=== PATIENT | female | born 1950 | race Caucasian/White ===

== ENCOUNTER 2017-03-08 13:39 | Emergency (ER) | payer MEDICARE, BC ==
[~2017-03-08] VITALS: Ht 170.2 cm; Wt 93.0 kg
[~2017-03-08 13:39] MED LIST: AZIT250T3 PO; ERGO1CAP30 PO; FERR325T PO; GLIP5TAB8 PO; HYDR5SYP10 PO; LEVO112T2 PO; LOMO2.5T PO; LOSA25TA PO; METF1000 PO; PARO40TA2 PO; SIMV40TA PO; TRAZ50TA12 PO; VERA1TAB9 PO
[2017-03-08 13:42] VITALS: BP 135/65; PULSE 78; RESP 16; TEMP 98.2; O2SAT 96
[2017-03-08] MEDS ORDERED: ONDANSETRON ODT 4 MG TAB PO ONE (14:15)
--- NOTE | 2017-03-08 14:31 | PD ---
HPI Chief Complaint: Injury Time Seen by Provider: 14:05 Travel History International Travel<30 days: No Contact w/Intl Traveler<30days: No Traveled to known affect area: No History of Present Illness HPI 66-year-old female presents to the emergency room for multiple complaints. First complaint is right ankle pain and swelling for the past 4 days. Patient ran into a step with her right chavez and sustained a small contusion with moderate pain. She applied ice after it initially happened. States a few days later she noticed right ankle swelling and bruising but denies any pain or trauma to that area. She denies any paresthesias. Second complaint is left upper abdominal pain for the past 2 days. Patient has been coughing for 12 days and believes the abdominal pain is related to the coughing. She went to her primary care physician for the cough and was prescribed azithromycin and cough medicine with codeine. These medications don' t seem to be improving her symptoms. She has severe left upper abdominal pain with any amount of coughing and has to apply pressure to her abdomen to prevent pain from worsening. Pain is improved slightly with pressure. She also has pain with movement. Patient has not been taking anything for pain. Patient has associated nausea without vomiting that started today. She has had diarrhea for several months but no changes or worsening in symptoms since abdominal pain started. PFSH Past Medical History Depression: Yes High Cholesterol: Yes Diabetes: Yes Patient Takes Glucophage: Yes Hypertension: Yes Thyroid Disease: Yes Past Surgical History Abdominal Surgery: Yes (GASTRIC BYPASS) Section: Yes Hysterectomy: Yes Other Surgery: Yes (HEMORRHOIDS) Social History Alcohol Use: Yes (SOC) Tobacco Use: No (quit 1987) Substance Use: No Allergies-Medications (Allergen,Severity, Reaction): Coded Allergies: Darvocet-N 100 (Verified Allergy, Unknown, 03/08/17) Halcion (Verified Allergy, Unknown, 03/08/17) Penicillin (Verified Allergy, Unknown, 03/08/17) Reported Meds & Prescriptions Reported Meds & Active Scripts Active Ventolin Hfa 18 GM Inh (Albuterol Sulfate) 90 Mcg/Act Aer 2 Puff INH Q4-6H PRN Tylenol (Acetaminophen) 325 Mg Tab 650 Mg PO Q8HR PRN Glipizide 5 Mg Tab 5 Mg PO BIDAC Take 30 minutes before a meal Metformin (Metformin HCl) 1,000 Mg Tab 1,000 Mg PO BIDPC With meals Verapamil ER (Verapamil HCl) 120 Mg Tab 120 Mg PO DAILY Paroxetine (Paroxetine HCl) 40 Mg Tab 40 Mg PO DAILY Simvastatin 40 Mg Tab 40 Mg PO HS Levothyroxine (Levothyroxine Sodium) 112 Mcg Tab 112 Mcg PO DAILY Review of Systems Except as stated in HPI: all other systems reviewed are Neg Physical Exam Narrative GENERAL: Well-developed, well-nourished female in no acute distress. Afebrile. Ambulatory SKIN: Focused skin assessment warm/dry. HEAD: Atraumatic. Normocephalic. EYES: Pupils equal and round. No scleral icterus. No injection or drainage. ENT: No nasal bleeding or discharge. Mucous membranes pink and moist. NECK: Trachea midline. No JVD. CARDIOVASCULAR: Regular rate and rhythm. No murmur appreciated. RESPIRATORY: No accessory muscle use. Breath sounds equal bilaterally. Left lower lung wheezes. GASTROINTESTINAL: Abdomen soft, non-tender, nondistended. Hepatic and splenic margins not palpable. EXTREMITY: Mild tenderness to palpation of the right lower chavez. There is a small hematoma and surrounding erythema. 2+ dorsalis pedis pulse. Full range of motion of all joints. Mild to moderate edema of the right ankle. Data Data Last Documented VS Vital Signs Date Time Temp Pulse Resp B/P Pulse Ox O2 Delivery O2 Flow Rate FiO2 03/08/17 13:42 98.2 78 16 135/65 96 Orders Ondansetron Odt (Zofran Odt) (03/08/17 14:15) Complete Blood Count With Diff (03/08/17 14:40) Comprehensive Metabolic Panel (03/08/17 14:40) Lipase (03/08/17 14:40) Prothrombin Time / Inr (Pt) (03/08/17 14:40) Act Partial Throm Time (Ptt) (03/08/17 14:40) Ct Abd/Pel W Iv Contrast(Rout) (03/08/17 14:40) Iv Access Insert/Monitor (03/08/17 14:40) Sodium Chloride 0.9% Flush (Ns Flush) (03/08/17 14:45) Iohexol 350 Inj (Omnipaque 350 Inj) (03/08/17 15:36) Baclofen (Lioresal) (03/08/17 16:15) Labs Laboratory Tests Test 03/08/17 14:54 White Blood Count 4.4 TH/MM3 Red Blood Count 4.20 MIL/MM3 Hemoglobin 11.0 GM/DL Hematocrit 33.4 % Mean Corpuscular Volume 79.6 FL Mean Corpuscular Hemoglobin 26.1 PG Mean Corpuscular Hemoglobin 32.8 % Concent Red Cell Distribution Width 19.7 % Platelet Count 155 TH/MM3 Mean Platelet Volume 7.7 FL Neutrophils (%) (Auto) 47.4 % Lymphocytes (%) (Auto) 37.8 % Monocytes (%) (Auto) 9.2 % Eosinophils (%) (Auto) 4.9 % Basophils (%) (Auto) 0.7 % Neutrophils # (Auto) 2.1 TH/MM3 Lymphocytes # (Auto) 1.6 TH/MM3 Monocytes # (Auto) 0.4 TH/MM3 Eosinophils # (Auto) 0.2 TH/MM3 Basophils # (Auto) 0.0 TH/MM3 CBC Comment DIFF FINAL Differential Comment Prothrombin Time 11.4 SEC Prothromb Time International 1.0 RATIO Ratio Activated Partial 26.7 SEC Thromboplast Time Sodium Level 142 MEQ/L Potassium Level 4.2 MEQ/L Chloride Level 105 MEQ/L Carbon Dioxide Level 30.5 MEQ/L Anion Gap 7 MEQ/L Blood Urea Nitrogen 13 MG/DL Creatinine 0.78 MG/DL Estimat Glomerular Filtration 74 ML/MIN Rate Random Glucose 174 MG/DL Calcium Level 8.5 MG/DL Total Bilirubin 0.3 MG/DL Aspartate Amino Transf 24 U/L (AST/SGOT) Alanine Aminotransferase 33 U/L (ALT/SGPT) Alkaline Phosphatase 96 U/L Total Protein 6.9 GM/DL Albumin 3.4 GM/DL Lipase 120 U/L [facility] Medical Decision Making Medical Screen Exam Complete: Yes Emergency Medical Condition: Yes Medical Record Reviewed: Yes Differential Diagnosis Muscle strain versus spasm versus contusion versus edema Narrative Course 66-year-old female with history of gastric bypass presents to the emergency room for evaluation of multiple complaints. Patient has had a cough for the past 12 days and developed abdominal pain 2 days ago. Pain is severe with coughing. She has associated nausea today. No unusual diarrhea. Pain is worsened with palpation. Abdomen is soft, benign. CBC, CMP, and lipase are negative. CT of the abdomen is negative. This is likely muscle strain from coughing so much. Patient was given baclofen in the emergency room. She is discharged with prescription for Tylenol. Patient also complains of right ankle pain, bruising, and swelling after injuring 4 days ago. She ran into a step and developed worsening swelling and bruising in her foot today. She denies any trauma or injury to the foot. Full exam reveals a small area of ecchymosis on the lower chavez with ecchymosis of the medial foot. There is only tenderness to palpation of the chavez contusion. No bony tenderness. Patient likely has ankle ecchymosis secondary to gravity. She was reassured and told to wrap/elevate leg. Patient was told to follow-up with a primary care physician or return for worsening symptoms. She understands and agrees to plan. Diagnosis Primary Impression: Contusion of right ankle, initial encounter Additional Impression: Abdominal muscle strain Qualified Code: S39.011A - Abdominal muscle strain, initial encounter Referrals: Primary Care Physician Patient Instructions: Contusion in Adults (ED), General Instructions, Muscle Strain (ED) Additional Instructions: Rest and drink plenty of fluids. Take Tylenol as directed, as needed for pain. Use inhaler as directed, as needed for cough and shortness of breath. Follow-up with a primary care physician. Return to the emergency room for worsening symptoms. Med/Other Pt SpecificInfo: Prescription(s) given Scripts Albuterol 18 GM Inh (Ventolin Hfa 18 GM Inh)90 Mcg/Act Aer2 Puff INH Q4-6H PRN ( SHORTNESS OF BREATH) #1 INHALER Ref 0 Prov:Rico Emery MD 03/08/17 Acetaminophen (Tylenol)325 Mg [id number] Mg PO Q8HR PRN (PAIN SCALE 1 TO 10) #21 TAB Ref 0 Prov:Rico Emery MD 03/08/17 Disposition: 01 DISCHARGE HOME Condition: Stable Kina Martinez Mar 08, 2017 14:31
[2017-03-08] MEDS ORDERED: SODIUM CHLORIDE 0.9% FLUSH 10 ML FLUSH IV FLUSH PRN (14:45)
[2017-03-08 15:01] LABS: AUTOMATED NEUTROPHIL # 2.1 TH/MM3 (1.8-7.7); BASOPHIL % 0.7 % (0.0-2.0); EOSINOPHIL # 0.2 TH/MM3 (0-0.4); EOSINOPHIL % 4.9 % (0.0-4.0); HEMATOCRIT 33.4 % (35.0-46.0); HEMO FLAGS DIFF FINAL; LYMPH % 37.8 % (9.0-44.0); LYMPHOCYTE # 1.6 TH/MM3 (1.0-4.8); MEAN CELL VOLUME 79.6 FL (80.0-100.0); MEAN CORPUSCULAR HEMOGLOBIN 26.1 PG (27.0-34.0); MEAN CORPUSCULAR HGB CONC 32.8 % (32.0-36.0); MONO % 9.2 % (0.0-8.0); NEUT % 47.4 % (16.0-70.0); PLATELET COUNT 155 TH/MM3 (150-450); RED CELL DISTRIBUTION WIDTH 19.7 % (11.6-17.2); WHITE BLOOD COUNT 4.4 TH/MM3 (4.0-11.0)
[2017-03-08 15:09] LABS: CHLORIDE 105 MEQ/L (98-107); POTASSIUM 4.2 MEQ/L (3.5-5.1); SODIUM (NA) 142 MEQ/L (136-145)
[2017-03-08 15:12] LABS: ANION GAP 7 MEQ/L (5-15); BICARBONATE 30.5 MEQ/L (21.0-32.0)
[2017-03-08 15:13] LABS: BLOOD UREA NITROGEN 13 MG/DL (7-18)
[2017-03-08 15:14] LABS: APTT (PATIENT) 26.7 SEC (24.3-30.1); PROTHROMBIN TIME - PATIENT 11.4 SEC (9.8-11.6)
[2017-03-08 15:15] LABS: ALT (GPT) 33 U/L (10-53); AST (GOT) 24 U/L (15-37); GLOMERULAR FILTRATION RATE 74 ML/MIN (>89)
[2017-03-08 15:17] LABS: TOTAL BILIRUBIN ADULT 0.3 MG/DL (0.2-1.0)
[2017-03-08 15:18] LABS: ALKALINE PHOSPHATASE 96 U/L (45-117)
[2017-03-08] MEDS ORDERED: IOHEXOL 350 MG/ML 10 ML VIAL (for RAD DIAG) IV ONE (15:36)
--- NOTE | 2017-03-08 16:08 | RADHPO ---
EXAM DATE/TIME: 03/08/2017 15:25 [facility] COMPARISON: No previous studies available for comparison. INDICATIONS : Left upper quadrant pain for two days. IV CONTRAST: 75 cc Omnipaque 350 (iohexol) IV ORAL CONTRAST: No oral contrast ingested. RADIATION DOSE: 20.21 CTDIvol (mGy) MEDICAL HISTORY : Hypertension. Diabetes. SURGICAL HISTORY : Gastric bypass. section.Hysterectomy. ENCOUNTER: Initial ACUITY: 2 days PAIN SCALE: 4/10 LOCATION: Left upper quadrant TECHNIQUE: Volumetric scanning of the abdomen and pelvis was performed. Using automated exposure control and ad justment of the mA and/or kV according to patient size, radiation dose was kept as low as reasonably achievable to obtain optimal diagnostic quality images. FINDINGS: Liver, spleen, pancreas, adrenal glands and kidneys are of normal. No obstruction or acute inflammatory changes seen in the gastrointestinal tract. CT appearance of the gallbladder within normal limits. There is atherosclerosis of the abdominal aorta. No aneurysm. Surgical changes of ventral hernia repair and gastric bypass noted. Elongated fluid collection seen in the right iliopsoas bursa. Minimal degenerative changes are seen o f both hips. Trace atelectasis seen in both lung bases. CONCLUSION: 1. No acute abnormality seen within the abdomen or pelvis. 2. Previous gastric bypass without evidence of an acute complication. 3. Previous ventral hernia repair without recurrent defect. 4. Incidentally seen right iliopsoas bursitis. 5. Atherosclerosis of the abdominal aorta. No aneurysm. 6. Trace bibasilar atelectasis. Clyde Rodriguez MD on March 08, 2017 at 16:04 Board Certified Radiologist. This report was verified electronically.
[2017-03-08] MEDS ORDERED: TYLE325T PO (16:12)
[2017-03-08] MEDS ORDERED: BACLOFEN 10 MG TAB PO ONE (16:15)
[2017-03-08] MEDS ORDERED: VENTAER INH (16:16)
[2017-03-08 16:39] VITALS: BP 141/63; PULSE 66; RESP 18; O2SAT 95
[2017-04-02] MEDS ORDERED: VERA1TAB9 PO (12:41)
== END 2017-03-08 16:40 | disposition home or self-care (01) ==
LOC: PHEFT 13:39
DX: S90.01XA Contusion of right ankle, initial encounter (principal); S39.011A Strain of muscle, fascia and tendon of abdomen, initial encounter; R05 Cough; E78.00 Pure hypercholesterolemia, unspecified; E11.9 Type 2 diabetes mellitus without complications; I10 Essential (primary) hypertension; Z87.891 Personal history of nicotine dependence; Z98.84 Bariatric surgery status; W22.09XA Striking against other stationary object, initial encounter; Y93.89 Activity, other specified; Y92.9 Unspecified place or not applicable; Y99.8 Other external cause status
CPT/HCPCS: 74177; 80053; 83690; 85025; 85610; 85730; 99284; Q9967